=== PATIENT | female | born 1980 | race Caucasian/White ===

== ENCOUNTER 2016-12-26 15:51 | Outpatient (CLI) | payer BC ==
[2016-02-23 09:41] VITALS: BP 132/72
--- NOTE | 2016-12-26 16:47 | Diagnostic Imaging Report ---
[facility] [address] [facility] [address] [address] Report Submission Date: December 26, 2016 4:46:23 PM CDT Patient Study Name: KYLE LANGSTON Date: December 26, 2016 3:58:50 PM CDT Modality Type: CR Gender: F Description: SPINE : 84 Institution: [facility] Physician: KIMBERLY PERDUE - LULU Lumbar spine 3 views History: Low back pain Findings: The lumbar spine is unremarkable without fracture, disc space narrowing, facet arthropathy, spondylolysis, or spondylolisthesis. Electronically signed on December 26, 2016 4:46:23 PM CDT by: Tip SETHI
== END 2016-12-26 15:52 ==
LOC: RAD 15:51
PROVIDERS: ATTEND Family Medicine
DX: M54.5 Low back pain (principal)
CPT/HCPCS: 72100

== ENCOUNTER 2018-04-21 15:44 | Emergency (ER) | payer OTHER ==
--- NOTE | 2018-04-21 16:46 | ED Physician Documentation ---
General Adult - HISTORIAN Historian: patient - HPI Stated Complaint: L arm pain Chief Complaint: General Adult Additional Information: Red hot mass L upper arm for two days. Woke her up at 0400 yesterday . Had 2nd chicken pox immunization in same arm 304 days ago. No treatment attempted. Has stiff neck, L<R. Neck pain radiates down left side of back. IDDM for 12 years. David't taken insulin for months as she can't afford it. FSG in ER 314. - ROS CONST: no problems - PAST HX Past History: other (above) Allergies/Adverse Reactions: Allergies Allergy/AdvReac Type Severity Reaction Status Date / Time No Known Allergies Allergy Verified 02/23/16 09:31 Home Medications: Ambulatory Orders Medication Instructions Recorded Cephalexin [Keflex] 500 mg PO QID #40 capsule 04/21/18 - SOCIAL HX Smoking History: non-smoker - FAMILY HX Family History: No - VITAL SIGNS Vital Signs: Vital Signs Temp Pulse Resp BP Pulse Ox 98.4 F 86 19 148/89 97 04/21/18 15:55 04/21/18 15:55 04/21/18 15:55 04/21/18 15:55 04/21/18 15:55 - REVIEWED ASSESSMENTS Nursing Assessment Reviewed: Yes Vitals Reviewed: Yes ED Results Lab/Radiology - Orders Orders: ED Orders Category Date Time Status Chem Sticks Med 04/21/18 17:00 Ordered 1 each CHEMQ General Adult Physical Exam - PHYSICAL EXAM GENERAL APPEARANCE: obese. Sits with L shoulder rotated forward. (animated, quite talkative) EENT: eye inspection normal, ENT inspection normal NECK: normal inspection, supple RESPIRATORY: no resp distress, breath sounds normal CVS: reg rate & rhythm BACK: normal inspection, no CVA tenderness, other (no bruising or erythema. Fluid movements without discomfort) SKIN: warm/dry, normal color (except 4x5 cm area of erythema left upper arm, prox 1/3. warm to touch, some firmness) EXTREMITIES: normal range of motion, no evidence of injury NEURO: CN's nml as tested, motor nml, sensation nml, cognition normal Discharge Clincal Impression: Trapezius muscle strain Qualifiers: Encounter type: initial encounter Laterality: left Qualified Code(s): S46.812A - Strain of other muscles, fascia and tendons at shoulder and upper arm level, left arm, initial encounter Cellulitis Qualifiers: Site of cellulitis: extremity Site of cellulitis of extremity: upper extremity Laterality: left Qualified Code(s): L03.114 - Cellulitis of left upper limb Prescriptions: Cephalexin [Keflex] 500 mg PO QID #40 capsule Referrals: Karla Lindsey MD [Primary Care Provider] - 2 Days Condition: Good Decision to Admit: NO Decision Time: 16:45
[2018-04-21 17:22] VITALS: BP 148/89
== END 2018-04-21 16:45 ==
LOC: ED 15:44
DX: S46.812A Strain of other muscles, fascia and tendons at shoulder and upper arm level, left arm, initial encounter (principal); L03.114 Cellulitis of left upper limb; X58.XXXA Exposure to other specified factors, initial encounter; Y92.9 Unspecified place or not applicable; Y93.9 Activity, unspecified; Y99.9 Unspecified external cause status
CPT/HCPCS: 99283